=== PATIENT | female | born 1955 | race African-American/Black ===

== ENCOUNTER 2020-05-03 10:47 | Emergency (ER) | payer OTHER ==
[2020-05-03] MEDS ORDERED: Cyclobenzaprine 10 MG TAB ONE (12:00)
== END 2020-05-03 12:08 | disposition home or self-care (01) ==
LOC: ERS 10:47
DX: S16.1XXA Strain of muscle, fascia and tendon at neck level, initial encounter (principal); F41.9 Anxiety disorder, unspecified; F31.9 Bipolar disorder, unspecified; F20.9 Schizophrenia, unspecified; F17.210 Nicotine dependence, cigarettes, uncomplicated; Z79.899 Other long term (current) drug therapy; Z79.82 Long term (current) use of aspirin; Z79.84 Long term (current) use of oral hypoglycemic drugs; X58.XXXA Exposure to other specified factors, initial encounter
CPT/HCPCS: 99283

== ENCOUNTER 2020-05-12 09:08 | Emergency (ER) | payer OTHER ==
[2020-05-12] MEDS ORDERED: Ibuprofen 800 MG TAB ONE (09:35)
[2020-05-12] MEDS ORDERED: Dexamethasone 10 MG/ML VIAL ONE (09:35)
== END 2020-05-12 09:50 | disposition home or self-care (01) ==
LOC: ERS 09:08
DX: M62.838 Other muscle spasm (principal); H04.123 Dry eye syndrome of bilateral lacrimal glands; I10 Essential (primary) hypertension; F41.9 Anxiety disorder, unspecified; F31.9 Bipolar disorder, unspecified; F20.9 Schizophrenia, unspecified; F17.210 Nicotine dependence, cigarettes, uncomplicated; M06.9 Rheumatoid arthritis, unspecified; M41.9 Scoliosis, unspecified
CPT/HCPCS: 96372; 99283; J1100

== ENCOUNTER 2020-05-15 18:47 | Emergency (ER) | payer OTHER ==
[2020-05-15 20:01] LABS: #Basophils 0.1 thou/uL (0.0-0.2); #Eosinphils 0.3 thou/uL (0.0-0.7); #Lymphocytes 3.2 thou/uL (1.20-3.40); #Monocytes 0.6 thou/uL (0.11-0.59); #Neutrophils 3.9 thou/uL (1.40-6.50); %Eosinophils 4.3 % (0.0-10.0); %Lymphocytes 39.6 % (21.0-51.0); %Monocytes 7.9 % (0.0-10.0); %Neutrophils 47.3 % (42.0-75.0); Hemoglobin 14.6 g/dL (12.0-16.0); Mean Corpuscular HGB CONC 31.3 g/dL (32.0-36.0); Mean Corpuscular Hemoglobin 23.9 pg (27.0-31.0); Mean Corpuscular Volume 76.2 fL (78.0-98.0); Mean Platelet Volume 12.1 fL (7.4-10.4); Platelet Count 204 thou/uL (130-400); RBC Distribution Width 14.8 % (11.5-14.5); Red Blood Cell (RBC) Count 6.12 mill/uL (4.20-5.40); White Blood Cell (WBC) Count 8.2 thou/uL (4.8-10.8)
--- NOTE | 2020-05-15 20:07 | RAD ---
EXAM: Single view of the chest HISTORY: Back pain radiates to the left arm COMPARISON: None FINDINGS: Single view of the chest shows a normal sized cardiomediastinal silhouette. There is no candelaria dence of consolidation, mass, or pleural effusion. The bones are unremarkable IMPRESSION: No evidence of acute cardiopulmonary disease
[2020-05-15 20:20] LABS: ALT (SGPT) 56 U/L (8-55); AST (SGOT) 50 U/L (5-34); Albumin 3.5 g/dL (3.4-4.8); Alkaline Phosphatase 208 U/L (40-110); Anion Gap 15 mmol/L (10-20); BUN (Urea Nitrogen) 20 mg/dL (9.8-20.1); Bilirubin, Total 0.3 mg/dL (0.2-1.2); CK (CPK) 45 U/L (29-168); Calc. Creatinine Clearance 0 mL/min (70-130); Calcium 9.3 mg/dL (7.8-10.44); Carbon Dioxide 27 mmol/L (23-31); Chloride 102 mmol/L (98-107); Estimated GFR-MDRD 83; Globulin 3.8 g/dL (2.4-3.5); Glucose 127 mg/dL (80-115); Lipase 26 U/L (8-78); Potassium 4.9 mmol/L (3.5-5.1); Protein, Total 7.3 g/dL (6.0-8.3); Sodium 139 mmol/L (136-145)
[2020-05-15 20:21] LABS: Large Platelets SLIGHT; MDiff Complete? YES; Platelet Morphology Comment Appears Adequate; Polychromasia SLIGHT = 2-3 cells (100X) (0-2/hpf); Target Cells MODERATE= 6-15 cells (100X) (0-1/hpf)
== END 2020-05-15 21:03 | disposition home or self-care (01) ==
LOC: ERS 18:47
DX: M54.12 Radiculopathy, cervical region (principal); F41.9 Anxiety disorder, unspecified; F31.9 Bipolar disorder, unspecified; F20.9 Schizophrenia, unspecified; F17.210 Nicotine dependence, cigarettes, uncomplicated
CPT/HCPCS: 36415; 71045; 80053; 82550; 83690; 84484; 85025; 93005